=== PATIENT | male | born 2005 | race Caucasian/White ===

== ENCOUNTER 2024-10-29 21:46 | Emergency (ER) | payer OTHER, SELFPAY ==
[2024-10-29 21:54] VITALS: BP 123/88; PULSE 93; RESP 18; TEMP 37.3; O2SAT 98
[2024-10-29 22:47] LABS: Influenza A QL RT-PCR Positive (Negative); Influenza B QL RT-PCR Negative (Negative); RSV RNA, RT-PCR Negative (Negative); SARS-CoV-2 RNA PCR Negative (Negative)
[2024-10-30 00:21] VITALS: TEMP 37.4
--- NOTE | 2024-10-30 00:21 | PC.NURSE ---
THIS RN CHECKED PT TEMP AT THIS TIME. 99.4 ORAL. LAST TYLENOL TAKEN X2 HOURS AGO.
[2024-10-30 01:17] VITALS: BP 126/101; PULSE 80; RESP 14; TEMP 37.4; O2SAT 100
[2024-10-30 01:39] VITALS: RESP 20; O2SAT 100
--- NOTE | 2024-10-30 01:46 | ED.FEVER ---
HPI - Fever General Chief Complaint: Fever Stated Complaint: 72nd hour fever above 100, cough, nightmare Time Seen by Provider: 10/30/24 01:30 History of Present Illness HPI Narrative: 19-year-old male presents to the emergency department for URI symptoms for the past 3 days. Patient is reporting cough, congestion, body aches, fever, diarrhea. No past medical history. Took Tylenol prior to arrival with improvement. Related Data Allergies Allergy/AdvReac Type Severity Reaction Status Date / Time No Known Allergies Allergy Verified 10/30/24 01:19 Review of Systems Review of Systems: All systems reviewed & are unremarkable except as noted in HPI and below Exam Narrative: GENERAL: Well-appearing, well-nourished, and in no acute distress. HEAD: Normocephalic, atraumatic. EYES: PERRLA and EOMI. ENT: Nares clear, no rhinorrhea or epistaxis. Mucous membranes moist. NECK: Supple. CHEST: Clear to auscultation. No respiratory distress. HEART: Regular rate and rhythm. No murmur heard. Normal peripheral pulses. ABDOMEN: Soft, nontender, nondistended, normal active bowel sounds. EXTREMITIES: Normal range of motion. No edema. SKIN: Warm, dry, no rash. NEURO: No focal deficits. Alert and oriented x3 Course Vital Signs Vital signs: Vital Signs Temperature 99.2 F 10/29/24 21:54 Pulse Rate 93 10/29/24 21:54 Respiratory Rate 18 10/29/24 21:54 Blood Pressure 123/88 10/29/24 21:54 Pulse Oximetry 98 10/29/24 21:54 Oxygen Delivery Room Air 10/29/24 21:54 Temperature 99.3 F 10/30/24 01:17 Pulse Rate 80 10/30/24 01:17 Respiratory Rate 14 10/30/24 01:17 Blood Pressure 126/101 H 10/30/24 01:17 Pulse Oximetry 100 10/30/24 01:17 Oxygen Delivery Room Air 10/29/24 21:54 MDM - Fever MDM Narrative Medical decision making narrative: 19-year-old male with no past medical history presents to emergency department for URI symptoms for the past 3 days. Vital stable. Patient is afebrile and nontoxic appearing. He is resting comfortably in exam bed. Lung sounds are clear. Abdomen is soft and nontender. Viral swabs obtained which are positive for influenza a, consistent with patient's presentation. Patient was advised to increase fluid intake, take Tylenol ibuprofen as needed for body aches and fevers, rest and follow-up with PCP. Return precautions discussed. He is agreeable with the plan verbalized understanding. Discharged in stable condition. Lab Data Labs: Lab Results 10/29/24 Range/Units 21:56 Influenza A (RT-PCR) Positive A (Negative) Influenza B (RT-PCR) Negative (Negative) RSV (RT-PCR) Negative (Negative) SARS-CoV-2 RNA (RT-PCR) Negative (Negative) Discharge Plan Discharge Clinical Impression: Influenza A Patient Disposition: Home, Self-Care Condition: Stable Instructions: Antibiotic Form, Influenza (ED) Additional Instructions: He tested positive for influenza A. Please rest, drink plenty of fluids including water, Gatorade and Pedialyte. Take Tylenol and ibuprofen as needed for body aches and fever. Return to the emergency department if you are unable to keep down food or fluids, you are unable to control her fever, or other concerning symptoms. Patient Language: [place] Prescriptions: New ibuprofen 800 mg tablet 800 mg PO TID PRN (Reason: pain) Qty: 20 0RF acetaminophen 500 mg capsule 1,000 mg PO Q6H PRN (Reason: fever or pain) Qty: 20 0RF Follow-up/Referrals: PHYSICIAN NOT ON STAFF,NONSTAFF [Primary Care Provider] - Stand Alone Forms: Work/School Release IP
[2024-10-30 02:20] VITALS: BP 116/71; PULSE 72; RESP 14; O2SAT 100
== END 2024-10-30 02:42 | disposition home or self-care (01) ==
PROVIDERS: Emergency Medicine; Emergency Provider Physician Assistant
DX: J10.1 Influenza due to other identified influenza virus with other respiratory manifestations (principal); Z20.822 Contact with and (suspected) exposure to COVID-19
CPT/HCPCS: 87637; 99283